=== PATIENT | male | born 2000 | race Caucasian/White ===

== ENCOUNTER 2020-02-12 20:18 | Emergency (ER) | payer OTHER, SELFPAY ==
[2020-02-12 20:25] VITALS: BP 152/73; PULSE 75; RESP 18; TEMP 35.9; O2SAT 98; BMI 23.0
--- NOTE | 2020-02-12 21:40 | ED.EXTPRO ---
HPI - Extremity Problem General Chief complaint: Extremity Injury, Upper Stated complaint: SHOULDER PAIN Time Seen by Provider: 02/12/20 21:40 Source: patient Mode of arrival: ambulatory History of Present Illness HPI Narrative: left shoulder pain times several months. Patient states pain started increasing and cannot wait for his primary care doctor and came in for the evaluation. Patient states several months ago did have an injury with lifting things at work. Since then has been having pain however no numbness or tingling. No neck pain no headache Pain Consistency: constant Location: left Severity scale (1-10): 5 Quality: aching Exacerbating factors: range of motion Related Data Previous Rx's Medication Instructions Recorded naproxen [Naprosyn] 500 mg PO BID #14 tab 02/12/20 Allergies Allergy/AdvReac Type Severity Reaction Status Date / Time No Known Allergies Allergy Verified 02/12/20 20:27 Review of Systems Review of Systems: Constitutional : No Weight loss, No Fever, No Chills, No Night Sweats, No Fatigue, No Malaise ENT/Mouth : No Hearing loss, No Ear Pain, No Nasal Congestion, No Sinus Pain, No Hoarseness, No sore throat, No Rhinorrhea, No Swallowing Difficulty Eyes: No Eye Pain, No Swelling, No Redness, No Foreign Body, No Discharge, No Vision Changes Cardiovascular : No Chest Pain, No SOB, No Dyspnea on Exertion, No Orthopnea, No Edema, No Palpitations Respiratory : No Cough, No Sputum, No Wheezing, No Smoke Exposure, No Dyspnea Gastrointestinal : No Nausea, No Vomiting, No Diarrhea, No Constipation, No abdominal Pain, No Hematochezia, No Melena Genitourinary : no irregular bleeding, No Dysuria, No Urinary Frequency, No Hematuria, No Urinary Incontinence, No Urgency, No Flank Pain, No Urinary Flow Changes, No Hesitancy Musculoskeletal : No joint pain, No Myalgias, No Joint Swelling tenderness to left shoulder anterior Skin : No Skin Lesions, No rash Neuro : No Weakness, No Numbness, No Paresthesias, No Loss of Consciousness, No Dizziness, No Headache Psych : No Anxiety/Panic, No Depression, No SI/HI/AH/VH, No Social Issues, Heme/Lymph: No Bruising, No Bleeding,No Lymphadenopathy Endocrine : No Polyuria, No Polydipsia, No Temperature Intolerance Yes all other systems are reviewed and are negative [facility] Past Medical History Medical History Patient denies medical problems Family History Family History (Updated 02/12/20 @ 21:43 by Adam Eddy DO) Other Patient denies medical problems Social History Social History Alcohol intake: current Alcohol intake frequency: holidays/special occasions only Alcohol type: beer and wine Smoked in Last 30 Days: No Use of substances other than those prescribed or required for medical reasons: No Substance Use Type: Marijuana Substance Use Frequency: Weekly Advance Directives: No Advance Directives Information Provided: Yes Physical Exam Vital Signs and I&O and Narrative: Vital Signs and I&O: Vital Signs Temp 96.7 F L 02/12/20 20:25 Pulse 75 02/12/20 20:25 Resp 18 02/12/20 20:25 BP 152/73 H 02/12/20 20:25 Pulse Ox 98 02/12/20 20:25 Intake & Output 02/12/20 02/12/20 02/13/20 06:59 18:59 06:59 Weight 77.111 kg Body Mass Index 23.0 vital signs reviewed Appearance: Alert. Oriented X3. No acute distress. Eyes: Pupils equal, round and reactive to light. ENT: Pharynx normal. Neck: Normal inspection. Neck supple. CVS: Normal heart rate and rhythm. Pulses normal. Respiratory: No respiratory distress. Breath sounds normal. Abdomen: Soft and nontender. Skin: Skin warm and dry. Normal skin color. Normal skin turgor. Extremities: No lower extremity edema. No lower extremity edema. tenderness to left anterior shoulder. Pain with full range of motion. Neurovascularly intact Neuro: Oriented X 3. No motor deficit. No sensory deficit. Discharge Plan Discharge Clinical Impression: Muscle strain of left shoulder region Patient Disposition: Home, Self-Care Instructions: Muscle Strain (ED) Additional Instructions: Thank you for visiting the emergency department today. If your symptoms worsen or do not resolve completely please return to the emergency department immediately or call 911. if he have any questions please call your primary care physician Prescriptions: New naproxen [Naprosyn] 500 mg tablet 500 mg PO BID Qty: 14 RF: 0 Referrals: [facility] [Provider Group] - 2 days Stand Alone Forms: Work/School Release Interventions: ED Discharge Assessment Last Done: 02/12/20 22:19 Discharge Date/Time: 02/12/20 22:21
[2020-02-12] MEDS: Ketorolac Tromethamine 30 MG/ML VIAL IM (22:10)
== END 2020-02-12 22:21 | disposition home or self-care (01) ==
PROVIDERS: Emergency Provider Emergency Medicine
DX: S46.912A Strain of unspecified muscle, fascia and tendon at shoulder and upper arm level, left arm, initial encounter (principal); X50.0XXA Overexertion from strenuous movement or load, initial encounter; Y93.9 Activity, unspecified; Y92.239 Unspecified place in hospital as the place of occurrence of the external cause; Y99.0 Civilian activity done for income or pay
CPT/HCPCS: 96372; 99284; J1885

== ENCOUNTER 2020-04-21 10:37 | Emergency (ER) | payer OTHER, SELFPAY ==
[2020-04-21 11:03] VITALS: BP 123/71; PULSE 64; RESP 16; TEMP 36.2; O2SAT 98; BMI 23.7
--- NOTE | 2020-04-21 11:09 | XR_ITS ---
EXAMINATION: XR SHOULDER, LEFT CLINICAL INFORMATION: Pain, trauma. COMPARISON: None. TECHNIQUE: AP external rotation, Grashey, scapular Y, and axillary views of the left shoulder. FINDINGS: Glenohumeral alignment is normal. Joint space is maintained. No evidence of acute fracture or dislocation of the glenohumeral joint. On one of the views, the acromioclavicular distance is mildly prominent measuring 0.9 cm. On an additional view, there is question of subtle superior positioning of the distal clavicle with respect to the acromium. These findings may be secondary to positioning/technique versus AC joint sprain injury. XR/XR shoulder LT min 2V IMPRESSION: 1. Question mild prominence of the acromioclavicular distance and bony offset at the acromioclavicular joint. This could be secondary to positioning/technique versus AC joint sprain injury. Please clinically correlate. Additional AC joint radiographs with and without weights can be obtained for further evaluation as clinically warranted. 2. No acute fracture or dislocation is otherwise seen.
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
== END 2020-04-21 12:49 | disposition home or self-care (01) ==
PROVIDERS: Emergency Provider Emergency Medicine
DX: S43.52XA Sprain of left acromioclavicular joint, initial encounter (principal); M25.512 Pain in left shoulder; V53.5XXA Driver of pick-up truck or van injured in collision with car, pick-up truck or van in traffic accident, initial encounter; Y93.9 Activity, unspecified; Y92.410 Unspecified street and highway as the place of occurrence of the external cause; Y99.9 Unspecified external cause status; Z79.899 Other long term (current) drug therapy; F12.90 Cannabis use, unspecified, uncomplicated
CPT/HCPCS: 29105; 73030; 99282; 99283

== ENCOUNTER 2020-05-05 08:41 | Emergency (ER) | payer OTHER, SELFPAY ==
[2020-05-05 08:58] VITALS: PULSE 76; RESP 16; TEMP 36.2; O2SAT 99; BMI 22.4
--- NOTE | 2020-05-05 09:08 | ED.EXTPRO ---
HPI - Extremity Problem General Chief complaint: Extremity Injury, Upper Stated complaint: work note Time Seen by Provider: 05/05/20 09:07 Source: patient Mode of arrival: ambulatory Limitations: no limitations History of Present Illness HPI Narrative: 20 y/o male presenting with continued left shoulder pain after a work related injury. He was seen here on 04/21 and diagnosed with AC sprain. 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 He presents today for a work note to have some more time off. He has not followed up with [facility] as previously recommended. He denies new injury. MD Complaint: joint paint Onset (ago): week(s) (2-3) Pain Consistency: intermittent Location: left and upper extremity Severity scale (1-10): 7 Quality: aching Radiation: proximal Relieving factors: cold therapy, immobilization and rest Exacerbating factors: range of motion and palpation Associated symptoms: denies other symptoms Related Data Previous Rx's Medication Instructions Recorded naproxen [Naprosyn] 500 mg PO BID #14 tab 02/12/20 naproxen 500 mg PO BID PRN #20 tab 04/21/20 ibuprofen 600 mg PO Q8H PRN #20 tab 05/05/20 lidocaine [Lidoderm] 1 patch TOPICAL DAILY #15 ea 05/05/20 Allergies Allergy/AdvReac Type Severity Reaction Status Date / Time No Known Allergies Allergy Verified 02/12/20 20:27 Review of Systems Review of Systems: Constitutional: No Fever, No Chills Cardiovascular: No Chest Pain, No SOB Respiratory: No Cough, No Sputum Musculoskeletal: + joint pain, + Myalgias Skin: No Skin Lesions, No rash Neuro: No Weakness, No Numbness Heme/Lymph: No Bruising PMFSH Past Medical History Attestation statement: The following information was validated with the patient. Medical History Patient denies medical problems Family History Family History Other Patient denies medical problems Social History Social History Alcohol intake: current Alcohol intake frequency: holidays/special occasions only Alcohol type: beer and wine Substance Use Type: Marijuana Advance Directives: No Advance Directives Information Provided: No Physical Exam Vital Signs: Vital Signs: Last Vital Signs Temp 97.2 F 05/05/20 08:58 Pulse 76 05/05/20 08:58 Resp 16 05/05/20 08:58 Pulse Ox 99 05/05/20 08:58 Body Mass Index 22.4 Appearance: Alert. Oriented X3. No acute distress. HEENT: normal inspection CVS: Normal heart rate and rhythm. Pulses normal. Respiratory: No respiratory distress. Skin: Skin warm and dry. Normal skin color. Normal skin turgor. No rashes. Extremities: left shoulder with AC joint tenderness, no deformity, edema, erythema. able to abduct with some discomfort. NV Intact distally. Equal strength bilaterally Neuro: Oriented X 3. No motor deficit. No sensory deficit. Course Course Course Narrative: 20 y/o male with AC joint sprain on 04/21 presenting with continued pain. He continued to lift and only wore the sling for 2 days. He took the Naproxen with some improvement. No new trauma. Doubt new injury, suspect continued symptoms of AC sprain due to non-compliance and overuse. Will provide work note, NSAID and refer to Ortho and [facility]. Stable for d/c. Discharge Plan Discharge Clinical Impression: Sprain of acromioclavicular joint Qualifiers: Encounter type: subsequent encounter Laterality: left Qualified Code(s): S43.52XD - Sprain of left acromioclavicular joint, subsequent encounter Patient Disposition: Home, Self-Care Instructions: Acromioclavicular Separation (ED), Shoulder Sprain (ED) Additional Instructions: Use ice and/or heat to the area as needed for pain. Continue to use the shoulder immobilizer/sling for comfort. It is important to rest your shoulder and allow it to heal. Limit lifting >5 lbs. Follow up with [facility]. Follow up with Orthopedics for further workup and management. Prescriptions: New lidocaine [Lidoderm] 5 % adhesive patch,medicated 1 patch topical DAILY Qty: 15 RF: 0 ibuprofen 600 mg tablet 600 mg PO Q8H PRN (Reason: pain) Qty: 20 RF: 0 No Action naproxen [Naprosyn] 500 mg tablet 500 mg PO BID Qty: 14 RF: 0 naproxen 500 mg tablet 500 mg PO BID PRN (Reason: pain) Qty: 20 RF: 0 Referrals: [facility] [Provider Group] - 2 days [facility] MD [Physician] - 2 days (left AC joint sprain) Stand Alone Forms: Work/School Release
== END 2020-05-05 09:29 | disposition home or self-care (01) ==
PROVIDERS: Emergency Provider Emergency Medicine Emergency Medical Services
DX: S43.52XA Sprain of left acromioclavicular joint, initial encounter (principal); M25.512 Pain in left shoulder; X50.0XXA Overexertion from strenuous movement or load, initial encounter; X50.3XXA Overexertion from repetitive movements, initial encounter; Y93.9 Activity, unspecified; Y92.812 Truck as the place of occurrence of the external cause; Y99.0 Civilian activity done for income or pay; Z79.899 Other long term (current) drug therapy
CPT/HCPCS: 99283

== ENCOUNTER → 2020-05-15 09:54 | Outpatient (BNVA) | payer OTHER, SELFPAY | PROVIDERS: Visit Provider Orthopaedic Surgery | DX: S49.90XD Unspecified injury of shoulder and upper arm, unspecified arm, subsequent encounter (principal) | CPT/HCPCS: 99202 ==